=== PATIENT | female | born 1995 ===

== ENCOUNTER 2017-07-21 12:20 | Emergency (ER) | payer OTHER ==
[2017-07-21 12:46] VITALS: BP 130/71; PULSE 74; RESP 16; TEMP 98; O2SAT 100
--- NOTE | 2017-07-21 13:46 | ED PDOC ---
HPI: CCC, URI, Sore Throat Time Seen by Provider: 07/21/17 12:45 Chief Complaint (Nursing): ENT Problem Chief Complaint (Provider): Sore throat History Per: Patient History/Exam Limitations: no limitations Onset/Duration Of Symptoms: Days (x3) Current Symptoms Are (Timing): Still Present Location Of Pain: Throat Additional Complaint(s): Jennifer is a 21 y/o female who presents to the ED for evaluation of sore throat. Patient states earlier this week she developed throat discomfort on both sides. Yesterday she looked into her throat and noticed white patches on the left tonsil. Denies any associated fever, chills, shortness of breath, throat swelling, cough, or congestion. PMD: Magdiel Logan Past Medical History Reviewed: Historical Data, Nursing Documentation, Vital Signs Vital Signs: Last Vital Signs Temp 98.0 F 07/21/17 12:42 Pulse 74 07/21/17 12:42 Resp 16 07/21/17 12:42 BP 130/71 07/21/17 12:42 Pulse Ox 100 07/21/17 12:42 - Medical History PMH: No Chronic Diseases - Family History Family History: States: Unknown Family Hx - Home Medications Home Medications: Ambulatory Orders Medication Instructions Recorded Amoxicillin/Clavulanate Pota 1 tab PO BID #20 tab 05/05/15 [Augmentin 875 mg-125 mg] Amoxicillin [Amoxil 500 mg Cap] 500 mg PO Q8H #30 cap 07/21/17 - Allergies Allergies/Adverse Reactions: Allergies Allergy/AdvReac Type Severity Reaction Status Date / Time No Known Allergies Allergy Verified 07/21/17 12:42 Review of Systems ROS Statement: Except As Marked, All Systems Reviewed And Found Negative Constitutional: Negative for: Fever, Chills ENT: Positive for: Throat Pain (with white patches). Negative for: Nose Congestion Respiratory: Negative for: Cough, Shortness of Breath Physical Exam - Reviewed Nursing Documentation Reviewed: Yes Vital Signs Reviewed: Yes - Physical Exam Appears: Positive for: Non-toxic, No Acute Distress Head Exam: Positive for: ATRAUMATIC, NORMAL INSPECTION, NORMOCEPHALIC Skin: Positive for: Normal Color, Warm, Dry. Negative for: Rash Eye Exam: Positive for: EOMI, Normal appearance, PERRL ENT: Positive for: Pharyngeal Erythema (bilaterally), Tonsillar Exudate (at left tonsil). Negative for: Normal ENT Inspection, Other (Trismus, drooling) Neck: Positive for: Painless ROM, Supple Respiratory: Negative for: Respiratory Distress Gastrointestinal/Abdominal: Positive for: Normal Exam, Soft. Negative for: Tenderness, Organomegaly Lymphatic: Positive for: Adenopathy (Left sided sub-mandibular lymphadenopathy) Neurologic/Psych: Positive for: Alert, Oriented - ECG O2 Sat by Pulse Oximetry: 100 (RA) Pulse Ox Interpretation: Normal Medical Decision Making Medical Decision Making: Time: 13:34 Initial Plan: --Ordered throat culture Clinical Impression: Pharyngitis Upon provider evaluation patient is medically stable, and requires no further treatment in the ED at this time. Patient will be discharged home with Rx for Amoxicillin. Counseling was provided and all questions were answered regarding diagnosis and need for follow up with ENT for further evaluation. There is agreement to discharge plan. Return if symptoms persist or worsen. Scribe Attestation: Documented by Laura Waters, acting as a scribe for Marshall Walker PA-C Provider Scribe Attestation: All medical record entries made by the Scribe were at my direction and personally dictated by me. I have reviewed the chart and agree that the record accurately reflects my personal performance of the history, physical exam, medical decision making, and the department course for this patient. I have also personally directed, reviewed, and agree with the discharge instructions and disposition. Disposition - Clinical Impression Clinical Impression: Pharyngitis - Patient ED Disposition Is Patient to be Admitted: No Counseled Patient/Family Regarding: Diagnosis, Need For Followup - Disposition Referrals: Adilia Mancilla [Outside] Disposition: Routine/Home Disposition Time: 13:34 Condition: STABLE Additional Instructions: FOLLOW UP WITH ENT FOR FURTHER EVALUATION. Prescriptions: Amoxicillin [Amoxil 500 mg Cap] 500 mg PO Q8H #30 cap Instructions: Pharyngitis (ED) Forms: [employer] (Bermudian) Print Language: [id number]
== END 2017-07-21 13:55 | disposition home or self-care (01) ==
LOC: H.ER 12:20
DX: J02.9 Acute pharyngitis, unspecified (principal)